=== PATIENT | female | born 1955 | race Native Hawaiian/Other Pacific Islander ===

== ENCOUNTER 2020-11-21 14:45 | Outpatient (CLI) | payer OTHER ==
[2020-11-21 15:22] LABS: PLATELET COUNT 236 K/uL (152-353)
[2020-11-21 15:33] LABS: POTASSIUM 4.9 mmol/L (3.6-5.2)
== END 2020-11-21 19:56 | disposition home or self-care (01) ==
LOC: LAB 14:45
PROVIDERS: ATTEND Nurse Practitioner Family
DX: Z00.00 Encounter for general adult medical examination without abnormal findings (principal); I10 Essential (primary) hypertension; E55.9 Vitamin D deficiency, unspecified; F41.1 Generalized anxiety disorder; M81.0 Age-related osteoporosis without current pathological fracture; R53.83 Other fatigue; M25.512 Pain in left shoulder; Z79.899 Other long term (current) drug therapy; R53.81 Other malaise; E53.8 Deficiency of other specified B group vitamins
CPT/HCPCS: 80053; 80061; 82306; 82607; 83036; 84439; 84443; 85027; 86140